=== PATIENT | female | born 1985 | race Caucasian/White ===

== ENCOUNTER 2019-04-14 22:41 | Emergency (ER) | payer BC, MEDICAID ==
[~2019-04-14] VITALS: Ht 157.5 cm; Wt 73.0 kg
[~2019-04-14 22:41] MED LIST: IBUP-1542 PO; TOPI100T PO; TOPI100T11 PO
[2019-04-14 22:45] VITALS: BP 137/88; PULSE 105; RESP 18; Ht 157.5 cm; Wt 73.0 kg
[2019-04-15] MEDS ORDERED: IBUPROFEN 600 MG TAB PO ONE
== END 2019-04-15 01:41 | disposition home or self-care (01) ==
LOC: FTE 22:41
DX: M25.571 Pain in right ankle and joints of right foot (principal); G40.909 Epilepsy, unspecified, not intractable, without status epilepticus
CPT/HCPCS: 73610; Z7502; Z7610